=== PATIENT | male | born 1940 | race Caucasian/White ===

== ENCOUNTER 2022-08-11 10:07 | Outpatient (REF) | payer MEDICARE, SELFPAY ==
[2022-08-11 11:46] LABS: MANUAL DIFF FLAG NO
[2022-08-11 12:07] LABS: Basophils Percent Auto 0.3 % (0-2); Eosinophils Absolute Auto 0.1 X10*3/uL (0.0-0.4); Eosinophils Percent Auto 0.8 % (0-4); Hematocrit 39.3 % (42.0-52.0); Hemoglobin 12.6 g/dl (14.0-18.0); Imm Gran Abs Auto 0.08 X10*3/uL (0.00-0.03); Imm Gran Pct Auto 0.6 % (0.0-0.4); Lymphocytes Absolute Auto 0.5 X10*3/uL (1.2-4.9); Lymphocytes Percent Auto 3.9 % (20-40); Mean Corpuscular HGB Conc 32.1 g/dl (31.0-36.0); Mean Corpuscular Hemoglobin 29.4 pg (27.0-33.0); Mean Corpuscular Volume 91.8 fL (80.0-98.0); Mean Platelet Volume 9.5 fL (9.4-12.4); Monocytes Absolute Auto 0.8 X10*3/uL (0.1-1.2); Monocytes Percent Auto 5.7 % (2-11); Neutrophils Absolute Auto 11.7 x10*3/uL (2.0-8.3); Neutrophils Percent Auto 88.7 % (45-73); Platelet Count 221 X10*3/uL (160-400); Red Blood Count 4.28 X10*6/uL (4.60-5.80); Red Cell Distribution Width 13.2 % (11.0-16.0); White Blood Count 13.2 X10*3/uL (4.8-10.8)
[2022-08-11 12:27] LABS: Erythrocyte Sedimentation Rate 29 MM/HR (0-15)
[2022-08-11 14:55] LABS: Alanine Aminotransferase 19 U/L (0-40); Albumin Level 3.5 g/dL (3.5-5.0); Alkaline Phosphatase 88 U/L (39-117); Anion Gap 13 (12-20); Aspartate Amino Transferase 17 U/L (5-37); Bilirubin Total 0.5 mg/dL (0.0-1.0); Blood Urea Nitrogen 33 mg/dL (9-16); Calcium 8.5 mg/dL (8.4-10.2); Carbon Dioxide 24 mmol/L (22-29); Chloride 107 mmol/L (96-108); Estimated Glomerular Filt Rate 40; Glucose Random 95 mg/dL (60-115); Sodium 139 mmol/L (135-145); Total Protein 6.4 g/dL (6.5-8.0)
[2022-08-11 15:27] LABS: Folate 5.4 ng/mL (> or = 4.0); Thyroid Stimulating Hormone 1.68 uIU/mL (0.32-4.0); Vitamin B12 270 pg/mL (200-900)
== END 2022-08-11 10:08 | disposition home or self-care (01) ==
LOC: HO.MANLDS 10:07
PROVIDERS: Visit Provider Internal Medicine
DX: R53.81 Other malaise (principal)
CPT/HCPCS: 36415; 80053; 82607; 82746; 84443; 85025; 85652

== ENCOUNTER 2022-08-12 09:38 | Outpatient (REF) | payer MEDICARE, SELFPAY ==
[2022-08-12 11:43] LABS: Appearance Urine Clear; Color Urine Yellow; Glucose Urine UA Negative (Negative); Leukocyte Esterase Urine Small (1+) (Negative); Nitrite Urine Positive (Negative); PH 5.5 (5.0-9.0); Specific Gravity - Urine 1.015 (1.005-1.025); UMIC TRIGGER UACC YES; Urine Blood Negative (Negative); Urine Ketones Negative (Negative); Urine Protein Negative (Neg-Trace)
[2022-08-12 11:55] LABS: Bacteria Urine 4+ (None Seen); Hyaline Casts Urine 0-2 /LPF (0-2); RBC Urine 0-2 /HPF (0-2); Squamous Epithelial Cell Urine 0-2 /HPF (0-2); UACC Culture Trigger YES; WBC Clumps Urine Present
== END 2022-08-12 09:39 | disposition home or self-care (01) ==
LOC: HO.MANLNP 09:38
PROVIDERS: Visit Provider Internal Medicine
DX: R50.9 Fever, unspecified (principal)
CPT/HCPCS: 81001; 87086; 87088; 87186

== ENCOUNTER 2022-08-25 08:47 | Outpatient (REF) | payer MEDICARE, SELFPAY ==
[2022-08-25 11:48] LABS: MANUAL DIFF FLAG NO
[2022-08-25 11:50] LABS: Basophils Absolute Auto 0.1 X10*3/uL (0.0-0.2); Basophils Percent Auto 0.7 % (0-2); Eosinophils Absolute Auto 0.2 X10*3/uL (0.0-0.4); Eosinophils Percent Auto 2.4 % (0-4); Hematocrit 37.4 % (42.0-52.0); Imm Gran Abs Auto 0.04 X10*3/uL (0.00-0.03); Imm Gran Pct Auto 0.6 % (0.0-0.4); Lymphocytes Absolute Auto 0.8 X10*3/uL (1.2-4.9); Lymphocytes Percent Auto 11.9 % (20-40); Mean Corpuscular HGB Conc 32.1 g/dl (31.0-36.0); Mean Corpuscular Hemoglobin 29.6 pg (27.0-33.0); Mean Corpuscular Volume 92.3 fL (80.0-98.0); Mean Platelet Volume 9.6 fL (9.4-12.4); Monocytes Absolute Auto 0.4 X10*3/uL (0.1-1.2); Monocytes Percent Auto 5.8 % (2-11); Neutrophils Absolute Auto 5.6 x10*3/uL (2.0-8.3); Neutrophils Percent Auto 78.6 % (45-73); Platelet Count 342 X10*3/uL (160-400); Red Blood Count 4.05 X10*6/uL (4.60-5.80); Red Cell Distribution Width 13.4 % (11.0-16.0); White Blood Count 7.1 X10*3/uL (4.8-10.8)
[2022-08-25 12:12] LABS: Alanine Aminotransferase 15 U/L (0-40); Albumin Level 3.6 g/dL (3.5-5.0); Alkaline Phosphatase 101 U/L (39-117); Anion Gap 12 (12-20); Aspartate Amino Transferase 19 U/L (5-37); Bilirubin Total 0.4 mg/dL (0.0-1.0); Blood Urea Nitrogen 31 mg/dL (9-16); Calcium 8.7 mg/dL (8.4-10.2); Carbon Dioxide 23 mmol/L (22-29); Chloride 110 mmol/L (96-108); Estimated Glomerular Filt Rate 46; Glucose Random 94 mg/dL (60-115); Potassium 4.7 mmol/L (3.3-5.1); Sodium 140 mmol/L (135-145); Total Protein 6.3 g/dL (6.5-8.0)
[2022-08-25 12:45] LABS: Free T4 (Free Thyroxine) 0.85 ng/dL (0.71-1.85); Thyroid Stimulating Hormone 1.57 uIU/mL (0.32-4.0); Vitamin B12 319 pg/mL (200-900); Vitamin D 25-OH Total 14.2 ng/mL (>30)
== END 2022-08-25 08:48 | disposition home or self-care (01) ==
LOC: HO.MANLDS 08:47
PROVIDERS: Visit Provider Internal Medicine
DX: R63.4 Abnormal weight loss (principal); E55.9 Vitamin D deficiency, unspecified
CPT/HCPCS: 36415; 80053; 82306; 82607; 84439; 84443; 85025

== ENCOUNTER 2022-08-25 09:25 | Outpatient (REF) | payer MEDICARE, SELFPAY | END 2022-08-25 09:26 | disposition home or self-care (01) | LOC: HO.MANLNP 09:25 | PROVIDERS: Visit Provider Internal Medicine | DX: Z13.89 Encounter for screening for other disorder (principal) ==

== ENCOUNTER 2023-06-11 14:55 | Outpatient (REF) | payer MEDICARE, SELFPAY ==
[2023-06-11 17:32] LABS: MANUAL DIFF FLAG NO
[2023-06-11 17:34] LABS: Basophils Percent Auto 0.5 % (0-2); Eosinophils Absolute Auto 0.2 X10*3/uL (0.0-0.4); Eosinophils Percent Auto 2.7 % (0-4); Hematocrit 45.5 % (42.0-52.0); Hemoglobin 14.6 g/dl (14.0-18.0); Imm Gran Abs Auto 0.04 X10*3/uL (0.00-0.03); Imm Gran Pct Auto 0.5 % (0.0-0.4); Lymphocytes Percent Auto 13.4 % (20-40); Mean Corpuscular HGB Conc 32.1 g/dl (31.0-36.0); Mean Corpuscular Hemoglobin 29.6 pg (27.0-33.0); Mean Corpuscular Volume 92.1 fL (80.0-98.0); Mean Platelet Volume 9.8 fL (9.4-12.4); Monocytes Absolute Auto 0.6 X10*3/uL (0.1-1.2); Monocytes Percent Auto 8.1 % (2-11); Neutrophils Absolute Auto 5.8 x10*3/uL (2.0-8.3); Neutrophils Percent Auto 74.8 % (45-73); Platelet Count 323 X10*3/uL (160-400); Red Blood Count 4.94 X10*6/uL (4.60-5.80); White Blood Count 7.8 X10*3/uL (4.8-10.8)
[2023-06-11 17:51] LABS: Alanine Aminotransferase 18 U/L (0-40); Albumin Level 3.9 g/dL (3.5-5.0); Alkaline Phosphatase 92 U/L (39-117); Anion Gap 17 (12-20); Aspartate Amino Transferase 23 U/L (5-37); Bilirubin Total 0.3 mg/dL (0.0-1.0); Blood Urea Nitrogen 37 mg/dL (9-16); Calcium 9.1 mg/dL (8.4-10.2); Carbon Dioxide 23 mmol/L (22-29); Chloride 107 mmol/L (96-108); Estimated Glomerular Filt Rate 40; Glucose Random 102 mg/dL (60-115); Iron 80 mcg/dL (45-160); Magnesium 2.4 mg/dL (1.6-2.6); Percent Iron Saturation 33 % (15-50); Potassium 4.4 mmol/L (3.3-5.1); Sodium 143 mmol/L (135-145); Total Iron Binding Capacity 246 mcg/dL (228-428); Total Protein 7.7 g/dL (6.5-8.0); Unsaturated Iron Binding 166 ug/dL
[2023-06-11 18:08] LABS: Ferritin 132 ng/mL (20-250); Vitamin D 25-OH Total 28.9 ng/mL (>30)
[2023-06-11 19:02] LABS: Erythrocyte Sedimentation Rate 18 MM/HR (0-15)
== END 2023-06-11 14:56 | disposition home or self-care (01) ==
LOC: HO.MANLDS 14:55
PROVIDERS: Visit Provider Internal Medicine
DX: E78.2 Mixed hyperlipidemia (principal); E55.9 Vitamin D deficiency, unspecified; R53.83 Other fatigue
CPT/HCPCS: 36415; 80053; 82306; 82728; 83540; 83735; 85025; 85652